=== PATIENT | female | born 1990 | race Two or more races ===

== ENCOUNTER 2017-09-03 10:14 | Emergency (ER) | payer OTHER | END 2017-09-03 12:21 | disposition home or self-care (01) | LOC: M ED 10:14 | DX: M79.605 Pain in left leg (principal); E66.9 Obesity, unspecified; Z97.5 Presence of (intrauterine) contraceptive device; Z88.0 Allergy status to penicillin | CPT/HCPCS: 73590 ==

== ENCOUNTER 2018-03-11 09:31 | Day surgery (SDC) | payer OTHER ==
[2018-03-11] MEDS: NS 1,000 ML IV (09:45)
[2018-03-11] MEDS ORDERED: LIDOCAINE 2% INJ 100 MG/5 ML SDV (FOR ANES.) As Ordered (09:46)
[2018-03-11] MEDS ORDERED: fentaNYL 100 MCG/2 ML INJECTION (J3010) As Ordered (09:52)
[2018-03-11] MEDS ORDERED: ONDANSETRON 4MG/2ML VIAL (J2405) As Ordered (10:00)
[2018-03-11] MEDS ORDERED: PROPOFOL 200 MG/20 ML VIAL As Ordered ×2 (10:01)
== END 2018-03-11 11:12 | disposition home or self-care (01) ==
LOC: M OPP 09:31
DX: K21.9 Gastro-esophageal reflux disease without esophagitis (principal); K29.70 Gastritis, unspecified, without bleeding; E03.9 Hypothyroidism, unspecified; R12 Heartburn; R06.83 Snoring; Z88.0 Allergy status to penicillin; Z91.040 Latex allergy status; Z79.899 Other long term (current) drug therapy; Z80.3 Family history of malignant neoplasm of breast; Z80.41 Family history of malignant neoplasm of ovary
CPT/HCPCS: 91035

== ENCOUNTER 2018-06-21 21:03 | Emergency (ER) | payer OTHER ==
[2018-06-21] MEDS: NORCO, ANEXSIA 5/325MG TABLET (HYDROcodone/ACETAMINOPHEN) PO (20:32)
[2018-06-21] MEDS: ONDANSETRON 4MG/2ML VIAL (J2405) IV (20:48)
[2018-06-21] MEDS ORDERED: ISOVUE-370 76% 100ML VIAL (Q9967) As Ordered (21:15)
[2018-06-21] MEDS: KETOROLAC 30 MG/ML VIAL (J1885) IV (23:26)
[2018-06-21 23:38] LABS: BASO % 0.4 % (0.0-1.0); EOS # 0.1 10^3/uL (0.0-0.50); EOS % 0.8 % (0.0-3.0); HEMATOCRIT 39.4 % (36.0-47.0); HEMOGLOBIN 13.1 g/dl (12.0-15.5); IMMATURE GRANULOCYTE % 0.3 % (0-3.0); LYMPH # 3.4 10^3/uL (1.5-6.5); LYMPH % 33.4 % (24.0-44.0); MEAN CORPUSCULAR HEMOGLOBIN 29.6 pg (27.0-33.0); MEAN CORPUSCULAR HGB CONC 33.2 g/dl (32.0-36.5); MEAN CORPUSCULAR VOLUME 89.1 fl (80.0-96.0); MONO # 0.4 10^3/uL (0.0-0.8); MONO % 4.3 % (0.0-5.0); NEUTROPHILS # 6.3 10^3/uL (1.8-7.7); NEUTROPHILS % 60.8 % (36.0-66.0); PLATELET COUNT, AUTOMATED 236 10^3/uL (150-450); RED BLOOD COUNT 4.42 10^6/uL (4.00-5.40); RED CELL DISTRIBUTION WIDTH 12.5 % (11.5-14.5); WHITE BLOOD COUNT 10.3 10^3/uL (4.0-10.0)
[2018-06-22 00:09] LABS: ALBUMIN 3.8 GM/DL (3.2-5.2); ALBUMIN/GLOBULIN RATIO 1.03 (1.00-1.93); ALKALINE PHOSPHATASE 42 U/L (45-117); ALT/SGPT 15 U/L (12-78); ANION GAP 8 MEQ/L (8-16); AST/SGOT 10 U/L (7-37); BILIRUBIN,DIRECT < 0.1 MG/DL (0.0-0.2); BILIRUBIN,TOTAL 0.3 MG/DL (0.2-1.0); BLOOD UREA NITROGEN 8 MG/DL (7-18); CALCIUM LEVEL 8.6 MG/DL (8.5-10.1); CARBON DIOXIDE LEVEL 25 MEQ/L (21-32); CHLORIDE LEVEL 105 MEQ/L (98-107); CREATININE FOR GFR 0.84 MG/DL (0.55-1.30); GLOMERULAR FILTRATION RATE > 60.0 (>60); GLUCOSE, FASTING 89 MG/DL (70-100); POTASSIUM SERUM 3.5 MEQ/L (3.5-5.1); SODIUM LEVEL 138 MEQ/L (136-145); TOTAL PROTEIN 7.5 GM/DL (6.4-8.2)
== END 2018-06-22 01:03 | disposition home or self-care (01) ==
LOC: M ED 06-22 01:03
DX: S06.0X9A Concussion with loss of consciousness of unspecified duration, initial encounter (principal); S39.012A Strain of muscle, fascia and tendon of lower back, initial encounter; S16.1XXA Strain of muscle, fascia and tendon at neck level, initial encounter; M25.511 Pain in right shoulder; R10.9 Unspecified abdominal pain; I10 Essential (primary) hypertension; E03.9 Hypothyroidism, unspecified; V49.40XA Driver injured in collision with unspecified motor vehicles in traffic accident, initial encounter
CPT/HCPCS: J2405

== ENCOUNTER → 2018-11-21 | Outpatient (REF) | payer OTHER ==
[~2018-11-21] MED LIST: ALEV220T26 PO; ALIG4CAP PO; KETO10TAB PO; LEXA1TAB PO; MELO15TA28 PO; MIRE1IUD IU; MOBI4TAB PO; OMEP20CA3 PO; OMEP40CA2 PO; PHEN-239 PO; RANI150T PO; RIZA5TAB PO; TOPI200T7 PO; TRAM50TA2 PO; VALA1TAB2 PO
[2018-11-21 14:21] LABS: BASO % 0.5 % (0.0-1.0); EOS # 0.2 10^3/uL (0.0-0.50); EOS % 2.3 % (0.0-3.0); HEMATOCRIT 42.1 % (36.0-47.0); HEMOGLOBIN 13.8 g/dl (12.0-15.5); LYMPH # 2.6 10^3/uL (1.5-6.5); LYMPH % 30.2 % (24.0-44.0); MEAN CORPUSCULAR HEMOGLOBIN 29.3 pg (27.0-33.0); MEAN CORPUSCULAR HGB CONC 32.8 g/dl (32.0-36.5); MEAN CORPUSCULAR VOLUME 89.4 fl (80.0-96.0); MONO # 0.4 10^3/uL (0.0-0.8); MONO % 4.6 % (0.0-5.0); NEUTROPHILS # 5.3 10^3/uL (1.8-7.7); NEUTROPHILS % 61.9 % (36.0-66.0); PLATELET COUNT, AUTOMATED 234 10^3/uL (150-450); RED BLOOD COUNT 4.71 10^6/uL (4.00-5.40); WHITE BLOOD COUNT 8.6 10^3/uL (4.0-10.0)
[2018-11-21 14:38] LABS: ALBUMIN 4.1 GM/DL (3.2-5.2); ALT/SGPT 29 U/L (12-78); BILIRUBIN,TOTAL 0.4 MG/DL (0.2-1.0); BLOOD UREA NITROGEN 7 MG/DL (7-18); CARBON DIOXIDE LEVEL 26 MEQ/L (21-32); CHLORIDE LEVEL 104 MEQ/L (98-107); CREATININE FOR GFR 0.78 MG/DL (0.55-1.30); GLOMERULAR FILTRATION RATE > 60.0 (>60); GLUCOSE, FASTING 97 MG/DL (70-100); RHEUMATOID FACTOR QUANT < 10.0 IU/ML (<15.0); SODIUM LEVEL 137 MEQ/L (136-145); TOTAL 25(OH) VITAMIN D 22.2 NG/ML (30.0-100.0); TOTAL PROTEIN 7.5 GM/DL (6.4-8.2)
[2018-11-21 14:46] LABS: ERYTHROCYTE SEDIMENTATION RATE 9 mm/hr (0-20)
[2018-11-22 14:16] LABS: ANTI DOUBLE STRAND-DNA AB 43 IU/mL (0-9); ANTINUCLEAR ANTIBODIES DIRECT Positive (Negative); RNP ANTIBODIES <0.2 AI (0.0-0.9); SJOGREN'S ANTI SS-A <0.2 AI (0.0-0.9); SJOGREN'S ANTI SS-B <0.2 AI (0.0-0.9); SMITH ANTIBODIES <0.2 AI (0.0-0.9)
== END ==
LOC: M LABNEURO 09:11
PROVIDERS: ATTEND Psychiatry & Neurology Neurology
DX: R51 Headache (principal); R53.83 Other fatigue

== ENCOUNTER 2018-12-02 06:47 | Day surgery (SDC) | payer OTHER ==
[~2018-12-02] VITALS: Ht 160 cm; Wt 106.1 kg
[~2018-12-02 06:47] MED LIST changes: +NS 1,000 ML IV ONE
[2018-12-02] MEDS ORDERED: LIDOCAINE 2% INJ 100 MG/5 ML SDV (FOR ANES.) As Ordered ONE (07:47)
[2018-12-02] MEDS ORDERED: PROPOFOL 200 MG/20 ML VIAL As Ordered ONE (07:47)
--- NOTE | 2018-12-02 08:03 | ROOR ---
Patient Name: Ritu Adams Procedure Date: 12/02/2018 7:33 AM Date of : 1990 Age: 28 Room: [facility] Gender: Female Note Status: Finalized Procedure: Colonoscopy Indications: Chronic diarrhea, Abnormal CT of the GI tract Providers: Roshan Ann MD Referring MD: IZAIAH PEOPLES MD Requesting Provider: Medicines: Monitored Anesthesia Care Complications: No immediate complications. Procedure: Pre-Anesthesia Assessment: - Prior to the procedure, a History and Physical was performed, and patient medications and allergies were reviewed. The patient is competent. The risks and benefits of the procedure and the sedation options and risks were discussed with the patient. All questions were answered and informed consent was obtained. Patient identification and proposed procedure were verified by the physician, the nurse and the anesthesiologist in the procedure room. Mental Status Examination: alert and oriented. Airway Examination: normal oropharyngeal airway and neck mobility. Respiratory Examination: clear to auscultation. CV Examination: normal. Prophylactic Antibiotics: The patient does not require prophylactic antibiotics. Prior Anticoagulants: The patient has taken no previous anticoagulant or antiplatelet agents. ASA Grade Assessment: II - A patient with mild systemic disease. After reviewing the risks and benefits, the patient was deemed in satisfactory condition to undergo the procedure. The anesthesia plan was to use monitored anesthesia care (MAC). Immediately prior to administration of medications, the patient was re-assessed for adequacy to receive sedatives. The heart rate, respiratory rate, oxygen saturations, blood pressure, adequacy of pulmonary ventilation, and response to care were monitored throughout the procedure. The physical status of the patient was re-assessed after the procedure. The Colonoscope was introduced through the anus and advanced to the terminal ileum, with identification of the appendiceal orifice and IC valve. The colonoscopy was performed without difficulty. The patient tolerated the procedure well. The quality of the bowel preparation was good. The terminal ileum, ileocecal valve, appendiceal orifice, and rectum were photographed. Scope insertion time was 3 minutes. Scope withdrawal time was 9 minutes. The total duration of the procedure was 12 minutes. Findings: The perianal and digital rectal examinations were normal. The terminal ileum appeared normal. A 6 mm polyp was found in the ascending colon. The polyp was sessile. The polyp was removed with a jumbo cold forceps. Resection and retrieval were complete. Verification of patient identification for the specimen was done by the physician and nurse using the patient's name, date and medical record number. Estimated blood loss was minimal. A few medium-mouthed diverticula were found from descending colon to transverse colon. There was no evidence of diverticular bleeding. Normal mucosa was found in the entire colon. Biopsies for histology were taken with a cold forceps from the ascending colon, transverse colon, descending colon and rectosigmoid colon for evaluation of microscopic colitis. Non-bleeding external and internal hemorrhoids were found during retroflexion. The hemorrhoids were medium-sized. Impression: - The examined portion of the ileum was normal. - One 6 mm polyp in the ascending colon, removed with a jumbo cold forceps. Resected and retrieved. - Moderate diverticulosis from descending to transverse colon. There was no evidence of diverticular bleeding. - Normal mucosa in the entire examined colon. Biopsied. - Non-bleeding external and internal hemorrhoids. Recommendation: - Patient has a contact number available for emergencies. The signs and symptoms of potential delayed complications were discussed with the patient. Return to normal activities tomorrow. Written discharge instructions were provided to the patient. - High fiber diet. - Continue present medications. - Await pathology results. - Repeat colonoscopy in 5-10 years for surveillance based on pathology results. - Based on the biopsy results you will receive a phone call from GI clinic in 2-3 weeks to review the pathology results AND/OR your results will be faxed to your Primary care physician. - Return to primary care physician. Roshan Ann MD Roshan Ann MD 12/02/2018 8:03:36 AM Electronically signed by Roshan Ann MD Number of Addenda: 0 Note Initiated On: 12/02/2018 7:33 AM Estimated Blood Loss: Estimated blood loss was minimal.
[2018-12-02 08:20] VITALS: BP 150/90
== END 2018-12-02 08:25 | disposition home or self-care (01) ==
LOC: M OPP 06:47
PROVIDERS: ATTEND Internal Medicine Gastroenterology
DX: K63.5 Polyp of colon (principal); K57.30 Diverticulosis of large intestine without perforation or abscess without bleeding; K64.8 Other hemorrhoids; R19.7 Diarrhea, unspecified; R93.3 Abnormal findings on diagnostic imaging of other parts of digestive tract

== ENCOUNTER → 2019-05-17 | Outpatient (CLI) | payer OTHER ==
[~2019-05-17] MED LIST changes: -NS 1,000 ML IV ONE; -OMEP20CA3 PO; +OMEP20CA4 PO; -OMEP40CA2 PO; +OMEP40CA97 PO
[2019-05-17 17:47] LABS: FREE T4 1.03 NG/DL (0.76-1.46); PROLACTIN 8.2 NG/ML; THYROID PEROXIDASE ANTIBODY > 1300.0 U/ML (<60.0); THYROID STIMULATING HORMONE 0.033 uIU/ML (0.358-3.740); TOTAL T3 146.6 NG/DL (60.0-181.0)
== END ==
LOC: M LAB 16:13
PROVIDERS: ATTEND Internal Medicine Endocrinology, Diabetes & Metabolism
DX: E05.90 Thyrotoxicosis, unspecified without thyrotoxic crisis or storm (principal)

== ENCOUNTER 2019-12-29 15:49 | Emergency (ER) | payer OTHER ==
[~2019-12-29] VITALS: Ht 162.6 cm; Wt 114.6 kg
[~2019-12-29 15:49] MED LIST changes: +OMEP1CAP73 PO; -OMEP20CA4 PO; -VALA1TAB2 PO; +VALA1TAB5 PO
[2019-12-29] MEDS ORDERED: BACL10TA2 (15:57)
[2019-12-29] MEDS ORDERED: LEXA1TAB2 PO (16:45)
[2019-12-29] MEDS ORDERED: LEVO137T2 PO (16:45)
[2019-12-29] MEDS ORDERED: HYDR25TAB PO (16:45)
[2019-12-29] MEDS ORDERED: ALBU8.5H INH (16:45)
[2019-12-29] MEDS ORDERED: CARV12.5 PO (16:45)
[2019-12-29] MEDS ORDERED: HYDR200T3 PO (16:45)
[2019-12-29] MEDS ORDERED: PANTOPRAZOLE 40MG VIAL (C9113 PER 1) IV ONE (17:45)
[2019-12-29] MEDS ORDERED: KETOROLAC 30 MG/ML 1ML VIAL IV ONE (17:45)
[2019-12-29] MEDS ORDERED: NS 1,000 ML IV ONE (17:45)
[2019-12-29] MEDS ORDERED: METOCLOPRAMIDE INJ 10MG/2ML VIAL (J2765 PER 1) IV ONE (17:45)
[2019-12-29] MEDS ORDERED: ISOVUE-370 76% 100ML VIAL As Ordered ONE (17:48)
[2019-12-29 17:56] LABS: BASO # 0.1 10^3/uL (0.0-0.2); BASO % 0.5 % (0.0-1.0); EOS # 0.2 10^3/uL (0.0-0.5); EOS % 1.6 % (0.0-3.0); HEMATOCRIT 37.2 % (36.0-47.0); HEMOGLOBIN 12.1 g/dl (12.0-15.5); LYMPH # 2.8 10^3/uL (1.5-5.0); LYMPH % 25.3 % (24.0-44.0); MEAN CORPUSCULAR HEMOGLOBIN 28.7 pg (27.0-33.0); MEAN CORPUSCULAR HGB CONC 32.5 g/dl (32.0-36.5); MEAN CORPUSCULAR VOLUME 88.4 fl (80.0-96.0); MONO # 0.4 10^3/uL (0.0-0.8); MONO % 3.9 % (0.0-5.0); NEUTROPHILS # 7.6 10^3/uL (1.5-8.5); NEUTROPHILS % 68.3 % (36.0-66.0); PLATELET COUNT, AUTOMATED 246 10^3/uL (150-450); RED BLOOD COUNT 4.21 10^6/uL (4.00-5.40); WHITE BLOOD COUNT 11.2 10^3/uL (4.0-10.0)
[2019-12-29 18:22] LABS: BILIRUBIN,DIRECT 0.1 MG/DL (0.0-0.2); BILIRUBIN,TOTAL 0.5 MG/DL (0.2-1.0); TOTAL PROTEIN 7.5 GM/DL (6.4-8.2)
--- NOTE | 2019-12-29 18:57 | REPVR ---
PROCEDURE INFORMATION: Exam: CT Abdomen And Pelvis With Contrast Exam date and time: 12/29/2019 6:10 PM Age: 29 years old Clinical indication: Abdominal pain; Localized; Left upper quadrant (luq); Additional info: Luq pain TECHNIQUE: Imaging protocol: Computed tomography of the abdomen and pelvis with intravenous contrast. Radiation optimization: All CT scans at this facility use at least one of these dose optimization techniques: automated exposure control; mA and/or kV adjustment per patient size (includes targeted exams where dose is matched to clinical indication); or iterative reconstruction. Contrast material: ISOVUE 370; Contrast volume: 100 ml; Contrast route: INTRAVENOUS (IV); COMPARISON: CT ABD/PEL W/IV CONTRAST ONLY 06/21/2018 9:07 PM FINDINGS: Liver: Liver is low in density. Liver measures approximately 18.8 cm in craniocaudal span. Gallbladder and bile ducts: Normal. No calcified stones. No ductal dilation. Pancreas: Normal. No ductal dilation. Spleen: Normal. No splenomegaly. Adrenals: Normal. No mass. Kidneys and ureters: 2.8 mm calculus upper pole left kidney. No hydronephrosis in either kidney. No hydroureter. Stomach and bowel: Scattered colonic diverticula. Appendix: No evidence of appendicitis. Intraperitoneal space: Unremarkable. No free air. No significant fluid collection. Vasculature: Unremarkable. No abdominal aortic aneurysm. Lymph nodes: Unremarkable. No enlarged lymph nodes. Bladder: Unremarkable as visualized. Reproductive: There is an IUD present within the uterus. 4.7 cm cyst in the right adnexa. Bones/joints: Unremarkable. No acute fracture. Soft tissues: Unremarkable. IMPRESSION: 1. 2.8 mm non-obstructing calculus upper pole left kidney. No hydronephrosis or hydroureter. No ureteral or bladder calculi. 2. Rare scattered colonic diverticula. 3. Hepatic steatosis. 4. 4.7 cm cyst in the right adnexa. pelvic ultrasound more ideally suited for evaluation of the uterus and ovaries if it is clinically relevant. Electronically signed by: Patricia Arthur On 12/29/2019 18:57:16 PM
[2019-12-29] MEDS ORDERED: REGL10TA6 PO (19:22)
[2019-12-29] MEDS ORDERED: BACT800T5 PO (19:25)
[2019-12-29 19:33] VITALS: BP 133/75
--- NOTE | 2020-01-01 08:08 | ED PDOC ---
Post-Departure Follow-Up ct abd/p faxed augustin johnson faxed formal report of ct abd/p for fu Alexander Cook MD Jan 01, 2020 08:08
== END 2019-12-29 19:39 | disposition home or self-care (01) ==
LOC: M ED 15:49
DX: N39.0 Urinary tract infection, site not specified (principal); R10.12 Left upper quadrant pain; Z79.3 Long term (current) use of hormonal contraceptives; K58.9 Irritable bowel syndrome, unspecified; M32.9 Systemic lupus erythematosus, unspecified; E66.9 Obesity, unspecified; N20.0 Calculus of kidney; K57.30 Diverticulosis of large intestine without perforation or abscess without bleeding; K76.0 Fatty (change of) liver, not elsewhere classified; N83.8 Other noninflammatory disorders of ovary, fallopian tube and broad ligament; Z79.899 Other long term (current) drug therapy; Z88.0 Allergy status to penicillin; Z91.040 Latex allergy status
CPT/HCPCS: 74177; 80047; 80076; 81001; 83690; 84702; 85025; 87086; 96361; 96374; 96375; 99284; C9113; J1885; J2765; Q9967

== ENCOUNTER 2020-10-05 05:27 | Emergency (ER) | payer OTHER ==
[~2020-10-05] VITALS: Ht 160 cm; Wt 110.0 kg
[~2020-10-05 05:27] MED LIST changes: +ALBU8.5H INH; +BACL10TA2; +BACT800T5 PO; +CARV12.5 PO; +HYDR-3490 PO; +HYDR200T3 PO; +LEVO137T2 PO; +LEXA1TAB2 PO; +REGL10TA6 PO
[2020-10-05] MEDS ORDERED: FAMO1TAB11 PO (05:45)
[2020-10-05] MEDS ORDERED: ACETAMINOPHEN 500 MG TAB PO ONE (06:25)
[2020-10-05 06:52] LABS: BASO # 0.1 10^3/uL (0.0-0.2); BASO % 0.5 % (0.0-1.0); EOS # 0.1 10^3/uL (0.0-0.5); EOS % 1.3 % (0.0-3.0); HEMATOCRIT 40.4 % (36.0-47.0); LYMPH # 2.4 10^3/uL (1.5-5.0); LYMPH % 22.1 % (24.0-44.0); MEAN CORPUSCULAR HEMOGLOBIN 29.9 pg (27.0-33.0); MEAN CORPUSCULAR HGB CONC 32.2 g/dl (32.0-36.5); MEAN CORPUSCULAR VOLUME 92.9 fl (80.0-96.0); MONO # 0.6 10^3/uL (0.0-0.8); MONO % 5.1 % (2.0-8.0); NEUTROPHILS # 7.7 10^3/uL (1.5-8.5); NEUTROPHILS % 70.7 % (36.0-66.0); PLATELET COUNT, AUTOMATED 212 10^3/uL (150-450); RED BLOOD COUNT 4.35 10^6/uL (4.00-5.40); WHITE BLOOD COUNT 10.8 10^3/uL (4.0-10.0)
[2020-10-05 07:19] LABS: ALBUMIN 3.8 GM/DL (3.2-5.2); ALT/SGPT 15 U/L (12-78); BILIRUBIN,DIRECT < 0.1 MG/DL (0.0-0.2); BILIRUBIN,TOTAL 0.3 MG/DL (0.2-1.0); LIPASE 126 U/L (73-393); TOTAL PROTEIN 7.2 GM/DL (6.4-8.2)
[2020-10-05 07:36] LABS: MONO REFLEX EBV COMP NEGATIVE (NEGATIVE)
[2020-10-05 08:31] VITALS: BP 162/120
[2020-10-07 15:07] LABS: EBV VIRAL CAPSID AG IgM <36.0 U/mL (0.0-35.9)
== END 2020-10-05 08:35 | disposition home or self-care (01) ==
LOC: M ED 05:27
DX: J02.8 Acute pharyngitis due to other specified organisms (principal); J06.9 Acute upper respiratory infection, unspecified; B34.9 Viral infection, unspecified; I10 Essential (primary) hypertension; K58.9 Irritable bowel syndrome, unspecified; M32.9 Systemic lupus erythematosus, unspecified; E03.9 Hypothyroidism, unspecified; E66.9 Obesity, unspecified; Z79.899 Other long term (current) drug therapy; Z88.0 Allergy status to penicillin; Z91.040 Latex allergy status
CPT/HCPCS: 36415; 80047; 80076; 83690; 85025; 86308; 86664; 86665; 87880; 99284; U0003

== ENCOUNTER 2021-02-11 12:51 | Emergency (ER) | payer OTHER ==
[~2021-02-11] VITALS: Ht 160 cm; Wt 108.2 kg
[~2021-02-11 12:51] MED LIST changes: +FAMO1TAB11 PO; +OMEP40CA4 PO; -OMEP40CA97 PO; -RIZA5TAB PO; +RIZA5TAB2 PO
[2021-02-11] MEDS ORDERED: KETOROLAC 30 MG/ML 1ML VIAL IV ONE (16:40)
[2021-02-11] MEDS ORDERED: NS 1,000 ML IV ONE ×2 (16:40→19:50)
[2021-02-11 17:55] LABS: BASO # 0.1 10^3/uL (0.0-0.2); BASO % 0.7 % (0.0-1.0); EOS # 0.2 10^3/uL (0.0-0.5); EOS % 2.6 % (0.0-3.0); HEMATOCRIT 43.9 % (36.0-47.0); HEMOGLOBIN 14.5 g/dl (12.0-15.5); LYMPH # 3.2 10^3/uL (1.5-5.0); LYMPH % 35.6 % (24.0-44.0); MEAN CORPUSCULAR HEMOGLOBIN 31.1 pg (27.0-33.0); MEAN CORPUSCULAR VOLUME 94.2 fl (80.0-96.0); MONO # 0.4 10^3/uL (0.0-0.8); MONO % 4.2 % (2.0-8.0); NEUTROPHILS # 5.1 10^3/uL (1.5-8.5); NEUTROPHILS % 56.6 % (36.0-66.0); PLATELET COUNT, AUTOMATED 271 10^3/uL (150-450); RED BLOOD COUNT 4.66 10^6/uL (4.00-5.40)
[2021-02-11] MEDS ORDERED: GI COCKTAIL 50ML BTL(HYOSCYAMINE/MAALOX/LIDOCAINE VISCOUS)(1:3:1) PO ONE (18:25)
[2021-02-11 18:31] LABS: ALBUMIN 4.6 GM/DL (3.2-5.2); ALT/SGPT 21 U/L (12-78); BILIRUBIN,DIRECT 0.1 MG/DL (0.0-0.2); BILIRUBIN,TOTAL 0.4 MG/DL (0.2-1.0); CK-MB VALUE MASS 3.3 NG/ML (<3.6); CPK CREATINE PHOSPHOKINASE 560 U/L (26-192); LIPASE 122 U/L (73-393); MB/CK RELATIVE INDEX 0.59 (< OR =4); TOTAL PROTEIN 8.3 GM/DL (6.4-8.2); TROPONIN I < 0.02 NG/ML (< 0.10)
--- NOTE | 2021-02-11 19:40 | REP ---
INDICATION: RUQ pain. COMPARISON: Abdomen/pelvis CT studies dated 06/21/2018 and 12/29/2019. TECHNIQUE: Multiple ultrasonographic images of the abdominal right upper quadrant. FINDINGS: There is no cholelithiasis, gallbladder wall thickening or pericholecystic fluid. There is no intrahepatic or extrahepatic biliary duct dilatation, common duct measures 3.5 mm in diameter. The hepatic parenchyma is hyperechoic compatible with hepato steatosis. Additionally there is a focal hyperechoic lesion posteriorly in the right lobe measuring 1.6 x 1.8 x 2.4 cm. By ultrasound this is compatible with hemangioma. However, it is not visualized on the comparison CT studies. Therefore, I would recommend MRI follow-up for assurance that this is not a more serious lesion The pancreas has an unremarkable appearance. The right kidney is normal size measuring 11.5 x 5.0 x 3.4 cm. There is no right renal hydronephrosis, calculus, mass or cyst. There is no right upper quadrant free fluid. IMPRESSION: The gallbladder is unremarkable by ultrasound. There is no biliary duct dilatation. There is a focal hyperechoic 2.4 cm lesion posteriorly in the right lobe of the liver as described above, possibly hemangioma, however, as it was not visualized on the comparison CT studies I would recommend follow-up MRI for more assurance as discussed above. <Electronically signed by Juan Ramon Carmichael > 02/11/211936
--- NOTE | 2021-02-11 22:00 | ECGEPIP ---
[facility] - ED Test Date: 2021-02-11 Pat Name: MARYURI WILSON Department: Room: - Gender: Female Cat Skinner: LUIS A : 1990 Requested By: Juancho Elias Order Number: [id number] Reading MD: Juancho De La Vega Measurements Intervals [place] Rate: 60 P: 25 WI: 160 QRS: 13 QRSD: 82 T: -10 QT: 432 QTc: 432 Interpretive Statements Normal sinus rhythm POOR R WAVE PROGRESSION Nonspecific T wave abnormality NO PRIORS FOR COMPARISON Electronically Signed on 02-11-2021 21:59:56 EDT by Juancho De La Vega
[2021-02-11 22:42] VITALS: BP 141/95
--- NOTE | 2021-02-12 06:39 | ED PDOC ---
Post-Departure Follow-Up dr jensen faxed formal report of us for fu Alexander Cook MD Feb 12, 2021 06:39
== END 2021-02-11 23:20 | disposition home or self-care (01) ==
LOC: M ED 12:51
DX: I10 Essential (primary) hypertension (principal); R07.89 Other chest pain; R53.83 Other fatigue; R51.9 Headache, unspecified; E86.0 Dehydration; R11.0 Nausea; K76.89 Other specified diseases of liver; R74.8 Abnormal levels of other serum enzymes; K21.9 Gastro-esophageal reflux disease without esophagitis; K58.9 Irritable bowel syndrome, unspecified; Z79.899 Other long term (current) drug therapy; Z88.0 Allergy status to penicillin; Z91.040 Latex allergy status
CPT/HCPCS: 36415; 76705; 80047; 80076; 82550; 82553; 83690; 84702; 85025; 93005; 96361; 96374; 99284; J1885

== ENCOUNTER 2021-04-09 09:15 | Outpatient (RCR) | payer OTHER | END 2021-04-10 | LOC: M PT 09:15 | PROVIDERS: ATTEND Orthopaedic Surgery Sports Medicine | DX: S93.401A Sprain of unspecified ligament of right ankle, initial encounter (principal); X58.XXXA Exposure to other specified factors, initial encounter; Y92.9 Unspecified place or not applicable; Y99.9 Unspecified external cause status; Y93.9 Activity, unspecified ==

== ENCOUNTER → 2021-04-10 | Outpatient (CLI) | payer OTHER ==
--- NOTE | 2021-04-10 13:13 | REP ---
INDICATION: COUGH. COMPARISON: None. TECHNIQUE: PA and lateral FINDINGS: The superior mediastinal structures are midline. The cardiac silhouette is unremarkable in size, shape, and position. The diaphragmatic surfaces of the lungs are regular, and the costophrenic angles are clear. The pulmonary stevenson are clear. The imaged osseous structures are intact. IMPRESSION: There is no acute cardiopulmonary disease. <Electronically signed by Ez Byrne > 04/10/21 [id number]
== END ==
LOC: M WUC 12:46
PROVIDERS: ATTEND Physician Assistant
DX: R05 Cough (principal)

== ENCOUNTER → 2021-05-01 | Outpatient (CLI) | payer OTHER ==
--- NOTE | 2021-05-01 16:52 | REP ---
INDICATION: POSTERIOR TIBIAL TENDINITIS. COMPARISON: None. TECHNIQUE: Sagittal fat suppressed T2 and proton density. Coronal proton density, fat suppressed proton density and STIR. Axial fat suppressed proton density and T1. FINDINGS: The tendons of the tibialis anterior, extensor hallucis, and extensor digitorum muscles are intact and of normal appearing low signal throughout. The tendons of the tibialis posterior, flexor digitorum, and flexor hallucis muscles are intact and of normal appearing low signal throughout. There is a slight increased amount of fluid seen surrounding the distal posterior tibial tendon few cm proximal to its navicular attachment. The Peroni ule tendons are intact and of normal appearing low signal throughout. The Achilles tendon is intact and of normal appearing low signal throughout. The anterior and posteroinferior tibiofibular ligaments are intact. The anterior and posterior talofibular ligaments are intact. The calcaneofibular ligament is intact. The ligaments within the sinus tarsi are within normal limits and the sinus tarsi fat signal is preserved. The subtalar joints are within normal limits. There is no abnormal cystic degenerative change seen in the os calcis deep to the angle of [place]. The lateral talar process is sharp and without cystic degenerative change. There is no lateral talar marginal osteophytosis or osteophytosis of the distal fibula. There is no evidence of a heel valgus deformity. The chondral surfaces of the talar dome and tibial plafond are smooth and without abnormal chondral or subchondral signal. The marrow signal is within normal limits. There is a small amount of fluid in the anterolateral joint. This is nonspecific. IMPRESSION: There is no evidence of acute internal derangement or significant abnormality. There is evidence of a mild increase in peritendinous fluid about the distal aspect of the posterior tibial tendon as described above. Tendinitis should be clinically evaluated for. There is a small amount of edema in the subcutaneous soft tissues at the same level which is nonspecific could be related to trauma. This should be correlated clinically. Other findings as described above. <Electronically signed by Ez Byrne > 05/01/21 [id number]
--- NOTE | 2021-05-01 16:56 | REP ---
INDICATION: POSTERIOR TIBIAL TENDINITIS. COMPARISON: None. TECHNIQUE: Sagittal T2 fat suppressed and proton density. Coronal proton density, STIR and fat suppressed proton density. Axial fat suppressed proton density and T1. FINDINGS: There is no evidence of a joint effusion. All chondral surfaces are smooth. The marrow signal is within normal limits throughout. The plantar soft tissues are within normal limits. There is no evidence of abnormal plantar aponeurosis signal or nodular appearance. There is a small amount of T1 and T2 prolongation at and just distal to the medial malleolus confined to the deep subcutaneous tissues. The signal throughout the imaged musculature is within normal limits. All imaged flexor and extensor tendons are intact and of normal appearing low signal throughout. IMPRESSION: MRI examination of the foot is within normal limits. Please see the ankle MRI report. There is a small focus of soft tissue edema medially as described above which is nonspecific. <Electronically signed by Ez Byrne > 05/01/21 [id number]
== END ==
LOC: M RAD 14:08
PROVIDERS: ATTEND Orthopaedic Surgery Sports Medicine
DX: M76.821 Posterior tibial tendinitis, right leg (principal); M25.471 Effusion, right ankle

== ENCOUNTER → 2021-05-08 | Outpatient (CLI) | payer OTHER ==
[2021-05-08 18:56] LABS: CALCIUM LEVEL 8.5 MG/DL (8.5-10.1); THYROID STIMULATING HORMONE 83.5 uIU/ML (0.358-3.740)
[2021-05-08 18:57] LABS: TOTAL 25(OH) VITAMIN D 22.4 NG/ML (30.0-100.0)
== END ==
LOC: M PLALAB 11:43
PROVIDERS: ATTEND Internal Medicine Endocrinology, Diabetes & Metabolism
DX: E83.51 Hypocalcemia (principal); E55.9 Vitamin D deficiency, unspecified; E89.0 Postprocedural hypothyroidism

== ENCOUNTER → 2021-07-23 | Outpatient (CLI) | payer OTHER | LOC: M PLALAB 15:29 | PROVIDERS: ATTEND Nurse Practitioner Family | DX: E89.0 Postprocedural hypothyroidism (principal) ==

== ENCOUNTER → 2021-08-12 | Outpatient (REF) | payer OTHER ==
[2021-08-13 12:20] LABS: APPEARANCE, URINE CLOUDY (CLEAR); BACTERIA, URINE AUTO 1+ (NEGATIVE); BILIRUBIN, URINE AUTO NEGATIVE (NEGATIVE); BLOOD, URINE BLOOD 1+ (NEGATIVE); CALCIUM OXALATE CRYSTALS MODERATE; COLOR, URINE YELLOW (YELLOW); GLUCOSE, URINE (UA) AUTO NEGATIVE (NEGATIVE); KETONE, URINE AUTO NEGATIVE (NEGATIVE); LEUKOCYTE ESTERASE, URINE AUTO TRACE (NEGATIVE); MUCUS, URINE SMALL (NEGATIVE); NITRITE, URINE AUTO NEGATIVE (NEGATIVE); PROTEIN, URINE AUTO 1+ mg/dL (NEGATIVE); RBC, URINE AUTO 40 /HPF (0-3); SPECIFIC GRAVITY URINE AUTO 1.023 (1.002-1.035); SQUAMOUS EPITHELIAL CELL UR AU 20 /HPF (0-6); UROBILINOGEN, URINE AUTO 0.2 mg/dL (0.0-2.0); WBC, URINE AUTO 4 /HPF (0-3)
== END ==
LOC: M LAB REF 11:16
PROVIDERS: ATTEND Physician Assistant Medical
DX: R30.0 Dysuria (principal)

== ENCOUNTER 2021-12-18 17:23 | Emergency (ER) | payer OTHER ==
[~2021-12-18] VITALS: Ht 160 cm; Wt 112.0 kg
[2021-12-18 17:24] VITALS: BP 160/110
== END 2021-12-18 21:14 | disposition left against medical advice (07) ==
LOC: M ED 17:23
DX: Z53.21 Procedure and treatment not carried out due to patient leaving prior to being seen by health care provider (principal)

== ENCOUNTER → 2022-09-05 | Outpatient (REF) | payer OTHER ==
[2022-09-05 19:17] LABS: APPEARANCE, URINE HAZY (CLEAR); BACTERIA, URINE AUTO 1+ (NEGATIVE); BILIRUBIN, URINE AUTO NEGATIVE (NEGATIVE); BLOOD, URINE BLOOD NEGATIVE (NEGATIVE); COLOR, URINE YELLOW (YELLOW); GLUCOSE, URINE (UA) AUTO NEGATIVE (NEGATIVE); KETONE, URINE AUTO NEGATIVE (NEGATIVE); LEUKOCYTE ESTERASE, URINE AUTO NEGATIVE (NEGATIVE); MUCUS, URINE SMALL (NEGATIVE); NITRITE, URINE AUTO NEGATIVE (NEGATIVE); PROTEIN, URINE AUTO NEGATIVE (NEGATIVE); RBC, URINE AUTO 1 /HPF (0-3); SQUAMOUS EPITHELIAL CELL UR AU 14 /HPF (0-6); UROBILINOGEN, URINE AUTO 0.2 mg/dL (0.0-2.0); WBC, URINE AUTO 2 /HPF (0-3)
== END ==
LOC: M LAB REF 19:07
PROVIDERS: ATTEND Physician Assistant Medical
DX: N39.0 Urinary tract infection, site not specified (principal)

== ENCOUNTER → 2022-10-28 | Outpatient (CLI) | payer OTHER ==
[2022-10-28 19:02] LABS: CALCIUM LEVEL 8.3 MG/DL (8.5-10.1); FREE T4 0.84 NG/DL (0.89-1.76); THYROID STIMULATING HORMONE 5.537 uIU/ML (0.55-4.78); TOTAL 25(OH) VITAMIN D 26.4 NG/ML (20.0-100.0)
== END ==
LOC: M PLALAB 15:47
PROVIDERS: ATTEND Internal Medicine Endocrinology, Diabetes & Metabolism
DX: E89.0 Postprocedural hypothyroidism (principal); E55.9 Vitamin D deficiency, unspecified

== ENCOUNTER → 2023-03-25 | Outpatient (CLI) | payer OTHER ==
[~2023-03-25] MED LIST changes: -HYDR200T3 PO; +HYDR200T46 PO
== END ==
LOC: M RAD 06:49
PROVIDERS: ATTEND Obstetrics & Gynecology
DX: Z34.83 Encounter for supervision of other normal pregnancy, third trimester (principal); Z3A.37 37 weeks gestation of pregnancy